=== PATIENT | female | born 1970 | race American Indian/Alaskan Native ===

== ENCOUNTER 2017-01-28 09:29 | Outpatient (CLI) | payer OTHER ==
[2017-01-28 10:11] LABS: Blood Urea Nitrogen 13 mg/dL (7-17)
--- NOTE | 2017-01-28 13:00 | Magnetic Resonance Report ---
MRI of the brain with and without contrast including focused study of the orbits. History: Optic neuritis. Findings: The posterior fossa is normal. The ventricles are normal in size and contour. There are no areas of restricted diffusion. There are no masses or extra-axial collections. The murdock-white matter junction is normal. No focal white matter lesions are identified. There are no areas of abnormal enhancement after contrast demonstration. High-resolution images of the orbits demonstrate normal symmetrical optic nerves with no abnormal enhancement. The extraocular muscles and globes appear normal. No abnormalities are seen in the retro-orbital fat. The CP angles are normal. Impression: Normal study.
== END 2017-01-28 09:30 | disposition home or self-care (01) ==
LOC: MRI 09:29
PROVIDERS: ATTEND Psychiatry & Neurology Neurology
DX: H46.8 Other optic neuritis (principal)
CPT/HCPCS: 36415; 70553; 82565; 84520; A9577

== ENCOUNTER 2020-08-14 16:48 | Emergency (ER) | payer OTHER ==
[2020-08-14] MEDS ORDERED: ALUM-MAG HYDROXIDE-SIMETHICONE 200-200-20MG/5ML ORAL LIQD 30 ML PO ONE (17:32)
[2020-08-14] MEDS ORDERED: HYOSCYAMINE SUBL 0.125 MG TAB SL ONE (17:32)
[2020-08-14] MEDS ORDERED: LIDOCAINE VISCOUS 2% 15 ML ORAL LIQD PO ONE (17:32)
[2020-08-14] MEDS ORDERED: FAMOTIDINE 20 MG TAB PO ONE (17:32)
[2020-08-14 17:54] LABS: Basophils % (Auto) 0.5 % (0.0-1.8); Eosinophils # (Auto) 0.6 K/mm3 (0.0-0.4); Eosinophils % (Auto) 11.2 % (0.0-4.3); Lymphocytes # (Auto) 1.9 K/mm3 (1.2-5.4); Lymphocytes % (Auto) 32.7 % (13.4-35.0); Mean Corpuscular HGB Conc 36 % (30-34); Mean Corpuscular Volume 96 fl (79-97); Monocytes # (Auto) 0.3 K/mm3 (0.0-0.8); Monocytes % (Auto) 4.8 % (0.0-7.3); Platelet Count 221 K/mm3 (140-440); Red Blood Count 4.26 M/mm3 (3.65-5.03); Red Cell Distribution Width 13.4 % (13.2-15.2)
[2020-08-14 18:19] LABS: Alanine Aminotransferase 52 units/L (7-56); Albumin 4.6 g/dL (3.9-5); BUN/Creatinine Ratio 21; Blood Urea Nitrogen 17 mg/dL (7-17); Calcium 9.8 mg/dL (8.4-10.2); Hemolysis Index 8
--- NOTE | 2020-08-14 18:25 | Emergency Department Report ---
ED Chest Pain HPI - General Chief Complaint: Chest Pain Stated Complaint: CHEST PAIN/DIZZY Time Seen by Provider: 08/14/20 17:30 Source: patient Mode of arrival: Ambulatory Limitations: No Limitations - History of Present Illness Initial Comments: Patient is a 50-year-old female presents emergency room complaints of substernal chest pain that began in April 2020. She states that she saw her GI doctor on 08/13/2020 and was started on omeprazole and Carafate. She states that she is scheduled to have endoscopy on 08/17/2020. She states that she went to the ER for this chest pain again 3 days ago at [facility] and had a full cardiac work-up including a chest x-ray per patient and she reports that everything was normal. She states that she was advised to follow-up with her GI doctor. She states that it feels like a burning sensation and she often has regurgitation. She has associated nausea and a couple episodes of vomiting today. She denies any radiation of the pain. She denies any diarrhea, fever, cough, shortness of breath, leg swelling, abdominal pain, hemoptysis, hematochezia, melena, hematemesis. She denies any recent travel, sick contacts, recent surgery, oral hormone use. Past medical history of hypertension which she controls with lifestyle modifications. Allergy to sulfa. She denies any family cardiac history. - Related Data Home Medications Medication Instructions Recorded Confirmed Last Taken Lisinopril/Hydrochlorothiazide 1 each PO DAILY 04/17/17 04/17/17 Unknown [Zestoretic 10-12.5 mg Tablet] Omeprazole 40 mg PO DAILY 04/17/17 04/17/17 Unknown Previous Rx's Medication Instructions Recorded Last Taken Type Mag Hydrox/Aluminum Hyd/Simeth 20 ml PO QID PRN #1 bottle 08/14/20 Unknown Rx [Maalox Advanced Suspension] Ondansetron [Zofran Odt] 4 mg PO Q8HR PRN #10 tab.rapdis 08/14/20 Unknown Rx Allergies Allergy/AdvReac Type Severity Reaction Status Date / Time Sulfa (Sulfonamide AdvReac Hives Verified 04/17/17 11:23 Antibiotics) Heart Score - HEART Score History: Slightly suspicious EKG: Normal Age: 45-65 Risk factors: 1-2 risk factors Troponin: < normal limit HEART Score: 2 ED Review of Systems ROS: Stated complaint: CHEST PAIN/DIZZY Other details as noted in HPI Comment: All other systems reviewed and negative ED Past Medical Hx - Past Medical History Previous Medical History?: Yes Hx Hypertension: Yes (7 years) Hx Arthritis: Yes (hands and feet) Hx HIV: No - Surgical History Past Surgical History?: Yes Additional Surgical History: x 1 - Social History Smoking Status: Never Smoker Substance Use Type: None - Medications Home Medications: Home Medications Medication Instructions Recorded Confirmed Last Taken Type Lisinopril/Hydrochlorothiazide 1 each PO DAILY 04/17/17 04/17/17 Unknown History [Zestoretic 10-12.5 mg Tablet] Omeprazole 40 mg PO DAILY 04/17/17 04/17/17 Unknown History Mag Hydrox/Aluminum Hyd/Simeth 20 ml PO QID PRN #1 bottle 08/14/20 Unknown Rx [Maalox Advanced Suspension] Ondansetron [Zofran Odt] 4 mg PO Q8HR PRN #10 tab.rapdis 08/14/20 Unknown Rx ED Physical Exam - General Limitations: No Limitations General appearance: alert, in no apparent distress - Head Head exam: Present: atraumatic, normocephalic - Eye Eye exam: Present: normal appearance - ENT ENT exam: Present: mucous membranes moist - Respiratory Respiratory exam: Present: normal lung sounds bilaterally. Absent: respiratory distress, wheezes, rales, rhonchi, stridor, chest wall tenderness, accessory muscle use, decreased breath sounds, prolonged expiratory - Cardiovascular Cardiovascular Exam: Present: regular rate, normal rhythm, normal heart sounds. Absent: systolic murmur, diastolic murmur, rubs, gallop - GI/Abdominal GI/Abdominal exam: Present: soft, normal bowel sounds. Absent: distended, tenderness, guarding, rebound, rigid - Neurological Exam Neurological exam: Present: alert, oriented X3 - Psychiatric Psychiatric exam: Present: normal affect, normal mood - Skin Skin exam: Present: warm, dry, intact ED Course Vital Signs 08/14/20 08/14/20 17:23 20:50 Temperature 98.2 F 98.2 F Pulse Rate 91 H 86 Respiratory 18 16 Rate Blood Pressure 157/93 Blood Pressure 143/63 [Left] O2 Sat by Pulse 99 100 Oximetry MAURO score - Mauro Score Age > 65: (0) No Aspirin use within the Past 7 Days: (0) No 3 or more CAD Risk Factors: (0) No 2 or more Angina events in past 24 hrs: (0) No Known CAD with more than 50% Stenosis: (0) No Elevated Cardiac Markers: (0) No ST Deviation Greater than 0.5mm: (0) No MAURO Score: 0 ED Medical Decision Making - Lab Data Result diagrams: 08/14/20 17:41 08/14/20 17:41 Lab Results 08/14/20 08/14/20 Range/Units 17:41 17:41 WBC 5.7 (4.5-11.0) K/mm3 RBC 4.26 (3.65-5.03) M/mm3 Hgb 14.8 H (10.1-14.3) gm/dl Hct 41.0 (30.3-42.9) % MCV 96 (79-97) fl MCH 35 H (28-32) pg MCHC 36 H (30-34) % RDW 13.4 (13.2-15.2) % Plt Count 221 (140-440) K/mm3 Lymph % (Auto) 32.7 (13.4-35.0) % Mccreary % (Auto) 4.8 (0.0-7.3) % Eos % (Auto) 11.2 H (0.0-4.3) % Baso % (Auto) 0.5 (0.0-1.8) % Lymph # (Auto) 1.9 (1.2-5.4) K/mm3 Mccreary # (Auto) 0.3 (0.0-0.8) K/mm3 Eos # (Auto) 0.6 H (0.0-0.4) K/mm3 Baso # (Auto) 0.0 (0.0-0.1) K/mm3 Seg Neutrophils % 50.8 (40.0-70.0) % Seg Neutrophils # 2.9 (1.8-7.7) K/mm3 Sodium 135 L (137-145) mmol/L Potassium 4.5 (3.6-5.0) mmol/L Chloride 99.5 (98-107) mmol/L Carbon Dioxide 26 (22-30) mmol/L Anion Gap 14 mmol/L BUN 17 (7-17) mg/dL Creatinine 0.8 (0.6-1.2) mg/dL Estimated GFR > 60 ml/min BUN/Creatinine Ratio 21 % Glucose 104 H (65-100) mg/dL Calcium 9.8 (8.4-10.2) mg/dL Total Bilirubin 0.60 (0.1-1.2) mg/dL AST 54 H (5-40) units/L ALT 52 (7-56) units/L Alkaline Phosphatase 66 (35-129) units/L Troponin T < 0.010 (0.00-0.029) ng/mL Total Protein 7.5 (6.3-8.2) g/dL Albumin 4.6 (3.9-5) g/dL Albumin/Globulin Ratio 1.6 % Lipase 26 (13-60) units/L Vital Signs 08/14/20 08/14/20 17:23 20:50 Temperature 98.2 F 98.2 F Pulse Rate 91 H 86 Respiratory 18 16 Rate Blood Pressure 157/93 Blood Pressure 143/63 [Left] O2 Sat by Pulse 99 100 Oximetry - EKG Data EKG shows normal: sinus rhythm, axis, intervals, QRS complexes, ST-T waves Rate: normal - Medical Decision Making Patient is a 50-year-old female presents emergency room complaints of substernal chest pain that began in April 2020. She states that she saw her GI doctor on 08/13/2020 and was started on omeprazole and Carafate. She states that she is scheduled to have endoscopy on 08/17/2020. She states that she went to the ER for this chest pain again 3 days ago at [facility] and had a full cardiac work-up including a chest x-ray per patient and she reports that everything was normal. She states that she was advised to follow-up with her GI doctor. She states that it feels like a burning sensation and she often has regurgitation. She has associated nausea and a couple episodes of vomiting today. She denies any radiation of the pain. She denies any diarrhea, fever, cough, shortness of breath, leg swelling, abdominal pain, hemoptysis, hematochezia, melena, hematemesis. She denies any recent travel, sick contacts, recent surgery, oral hormone use. Past medical history of hypertension which she controls with lifestyle modifications. Allergy to sulfa. She denies any family cardiac history. Vitals are stable. No normality on physical examination as documented in chart. EKG is within normal limits. Labs are stable. Troponin is negative. This has been ongoing for several months. Her pain is atypical and likely related to GERD versus PUD versus gastritis. Do not suspect ACS. Her heart score is 2. Low risk based on Wells criteria for PE, PE very unlikely. Patient already has an upcoming appointment with GI for an endoscopy. Patient recently had another cardiac work-up present another emergency department just a few days ago. Patient given medications while in the ED and symptoms improved and she was feeling much better and ready to go home. Patient given prescription for Maalox and zofran. advised pt Please take medication as prescribed as needed. Please continue taking medication you are prescribed by your GI doctor. Increase your water intake. Please follow the diet for acid reflux. Follow-up with your GI doctor. Follow-up with your [facility] care doctor. Return to emergency room for any worsening symptoms. Critical care attestation.: If time is entered above; I have spent that time in minutes in the direct care of this critically ill patient, excluding procedure time. ED Disposition Clinical Impression: Atypical chest pain GERD (gastroesophageal reflux disease) Qualifiers: Esophagitis presence: without esophagitis Qualified Code(s): K21.9 - Gastro- esophageal reflux disease without esophagitis Disposition: TO HOME OR SELFCARE Is pt being admited?: No Does the pt Need Aspirin: No Condition: Stable Instructions: Peptic Ulcer, [id number], Food Choices for Gastroesophageal Reflux Disease, Adult, Gastroesophageal Reflux Disease, Adult, [id number], Chest Pain (ED) Additional Instructions: Please take medication as prescribed as needed. Please continue taking medication you are prescribed by your GI doctor. Increase your water intake. Please follow the diet for acid reflux. Follow-up with your GI doctor. Follow- up with your primary care doctor. Return to emergency room for any worsening symptoms. Prescriptions: Mag Hydrox/Aluminum Hyd/Simeth [Maalox Advanced Suspension] 20 ml PO QID PRN #1 bottle PRN Reason: pain/burning Ondansetron [Zofran Odt] 4 mg PO Q8HR PRN #10 tab.rapdis PRN Reason: nausea vomiting Referrals: PRIMARY CARE,MD [Primary Care Provider] - 2-3 Days your, GI doctor [Other] - 2-3 Days Time of Disposition: 20:23 Print Language: MAORI
[2020-08-14 18:27] LABS: Hemoglobin 14.8 gm/dl (10.1-14.3)
[2020-08-14 21:09] VITALS: BP 143/63
== END 2020-08-14 21:09 | disposition home or self-care (01) ==
LOC: ED 16:48
DX: K21.9 Gastro-esophageal reflux disease without esophagitis (principal); R07.89 Other chest pain; I10 Essential (primary) hypertension; M19.91 Primary osteoarthritis, unspecified site; Z98.890 Other specified postprocedural states; Z79.899 Other long term (current) drug therapy; Z88.2 Allergy status to sulfonamides
CPT/HCPCS: 36415; 80053; 83690; 84484; 85025; 93005